=== PATIENT | male | born 1955 | race Caucasian/White ===

== ENCOUNTER 2016-12-03 22:04 | Emergency (ER) | payer SELFPAY ==
[~2016-12-03] VITALS: Ht 172.7 cm; Wt 98.6 kg
[~2016-12-03 22:04] MED LIST: ALPHA-LIPOIC A300 MG PO; AMLODIPINE BESY10 MG PO; AMLODIPINE BESYL5 MG PO; BORON PO; LISINOPRIL20 MG PO; SERTRALINE HCL100 MG PO; TADALAFIL5 MG PO; TRAZODONE HCL50 MG PO
[2016-12-03 22:48] LABS: EOSINOPHIL (%) 0.8 % (0-5); EOSINOPHIL COUNT 0.1 K/uL (0-0.3); HEMATOCRIT 44.1 % (38.0-50.0); IMMATURE GRANULOCYTE (%) 0.3 % (0.0-0.7); INSTRUMENT ABS NEUTROPHIL CT 7.3 K/uL; LYMPHOCYTE COUNT 0.9 K/uL (1.0-2.8); MCH 27.5 PG (29.0-34.0); MCHC 34.5 G/DL (30.0-36.0); MCV 79.9 FL (86-99); MEAN PLAT.VOLUME 9.7 uM^3 (9.0-12.4); MONOCYTE (%) 7.1 % (3-12); MONOCYTE COUNT 0.6 K/uL (0-0.8); NEUTROPHIL (%) 82.1 % (45-76); NEUTROPHIL COUNT 7.3 K/uL (1.8-6.4); PLATELET COUNT 287 K/uL (156-360); RBC DIS.WIDTH-CV 12.1 % (11.8-14.6); RBC DIS.WIDTH-SD 34.9 % (39-53); RED BLOOD COUNT 5.52 M/uL (4.00-5.50); WHITE BLOOD COUNT 8.9 K/uL (4.1-10.2)
[2016-12-03 22:56] LABS: D-DIMER ELISA < 150.00 ng/mLDDU (<230)
[2016-12-03 22:58] LABS: CHLORIDE 106 mEq/L (99-109); POTASSIUM 3.9 mEq/L (3.7-5.4); SODIUM 139 mEq/L (136-147)
[2016-12-03 23:00] LABS: GLUCOSE 114 mg/dL (70-99)
[2016-12-03 23:01] LABS: ANION GAP 10 MEQ/L (2-14)
[2016-12-03 23:04] LABS: GFR ESTIMATE (CALCULATED) > 59 mL/min/
[2016-12-03 23:05] LABS: UREA NITROGEN (BUN) 13 mg/dL (9-23)
[2016-12-03 23:09] LABS: TROP-I INTERPRETATION NEGATIVE; TROPONIN-I 0.22 ng/mL (0.0-0.30)
[2016-12-04 00:23] VITALS: BP 170/96
== END 2016-12-04 00:24 | disposition left against medical advice (07) ==
LOC: EME → EDBD 22:04 → EME 22:04
PROVIDERS: Emergency Medicine
DX: R00.2 Palpitations (principal); I10 Essential (primary) hypertension; Z53.20 Procedure and treatment not carried out because of patient's decision for unspecified reasons
CPT/HCPCS: 71020; 80048; 84439; 84443; 84481; 84484; 85025; 85379; 93005; 99281; 99284

== ENCOUNTER 2017-05-20 16:03 | Inpatient (IN) | payer OTHER ==
[~2017-05-20] VITALS: Ht 172.7 cm; Wt 95.0 kg
[2017-05-20 16:40] LABS: HEMATOCRIT 29.6 % (38.0-50.0); HEMOGLOBIN 9.8 G/DL (12.5-16.6); MCHC 33.1 G/DL (30.0-36.0); MCV 81.5 FL (86-99); PLATELET COUNT 251 K/uL (156-360); RBC DIS.WIDTH-CV 13.4 % (11.8-14.6); RBC DIS.WIDTH-SD 40.2 % (39-53); RED BLOOD COUNT 3.63 M/uL (4.00-5.50); WHITE BLOOD COUNT 5.8 K/uL (4.1-10.2)
[2017-05-20 16:47] LABS: CHLORIDE 110 mEq/L (99-109); POTASSIUM 3.8 mEq/L (3.7-5.4); SODIUM 143 mEq/L (136-147)
[2017-05-20 16:48] LABS: ALBUMIN 3.1 g/dL (3.2-4.8); MAGNESIUM 2.1 mg/dL (1.3-2.7)
[2017-05-20 16:50] LABS: GLUCOSE 159 mg/dL (70-99); TOTAL PROTEIN 4.6 g/dL (6.4-8.3)
[2017-05-20 16:52] LABS: TOTAL BILIRUBIN 0.4 mg/dL (0.0-1.0)
[2017-05-20 16:53] LABS: SERUM ETHYL ALCOHOL < 10 mg/dL
[2017-05-20 16:54] LABS: ALKALINE PHOSPHATASE 65 IU/L (3-129); CREATININE 2.2 mg/dL (0.6-1.3); GFR ESTIMATE (CALCULATED) 33 mL/min/ (58.99-99999)
[2017-05-20 16:55] LABS: AST (GOT) 91 IU/L (2-34)
[2017-05-20 16:56] LABS: UREA NITROGEN (BUN) 49 mg/dL (9-23)
[2017-05-20 16:57] LABS: SALICYLATE < 5.0 MG/DL (15-30)
[2017-05-20 16:58] LABS: ACETAMINOPHEN (TYLENOL) < 10 mcg/mL (10-30); ALT (GPT) 62 IU/L (3-49)
[2017-05-20 16:58] LABS: AMPHETAMINE NEGATIVE (500 ng/mL); BARBITURATES NEGATIVE (200 ng/mL); BENZODIAZEPINES PRESUMPTIVE POSITIVE (150 ng/mL); BUPRENORPHINE NEGATIVE (10 ng/mL); COCAINE NEGATIVE (150 ng/mL); METHADONE NEGATIVE (200 ng/mL); METHAMPHETAMINE NEGATIVE (500 ng/mL); OPIATES (MORPHINE) NEGATIVE (100 ng/mL); OXYCODONE NEGATIVE (100 ng/mL); PHENCYCLIDINE NEGATIVE (25 ng/mL); PROPOXYPHENE NEGATIVE (300 ng/mL); THC CANNABINOIDS NEGATIVE (50 ng/mL); TRICYCLIC ANTIDEPRESSANTS NEGATIVE (300 ng/mL)
[2017-05-20 17:00] LABS: TROP-I INTERPRETATION NEGATIVE; TROPONIN-I < 0.01 ng/mL (0.0-0.30)
[2017-05-20 17:28] LABS: BENZODIAZEPINES, URINE SCREEN POSITIVE (200 ng/mL)
[2017-05-20] MEDS ORDERED: LISINOPRIL20 MG PO (21:56)
[2017-05-20] MEDS ORDERED: LIPITOR10 MG PO (22:03)
[2017-05-20] MEDS ORDERED: DESYREL100 MG PO (22:04)
[2017-05-20] MEDS ORDERED: [UNRECOGNIZED DRUG - OTHER] PO (22:07)
[2017-05-20] MEDS ORDERED: PROSTATE HEALT1 EAC1 PO (22:08)
[2017-05-20] MEDS ORDERED: LAXATIVE DIETA500 MG PO (22:10)
[2017-05-20] MEDS ORDERED: CHONDROITIN SU250 MG PO (22:13)
[2017-05-20] MEDS ORDERED: OPTIFLEX-C400 MG PO (22:15)
[2017-05-20] MEDS ORDERED: K2 PLUS D3 TAB1 EACH PO (22:16)
[2017-05-20] MEDS ORDERED: TUMERIC PO (22:18)
[2017-05-20] MEDS ORDERED: BORON PO (22:20)
[2017-05-20] MEDS ORDERED: [UNRECOGNIZED DRUG - REMARK] (22:22)
[2017-05-20] MEDS ORDERED: BACLOFEN10 MG PO (23:06)
[2017-05-20] MEDS ORDERED: FLAX SEED OIL1 EACH PO (23:07)
[2017-05-20] MEDS ORDERED: COENZYME Q10100 M2 PO (23:09)
[2017-05-20] MEDS ORDERED: [UNRECOGNIZED DRUG - OTHER] PO (23:13)
[2017-05-20 23:23] LABS: HEMATOCRIT 32.5 % (38.0-50.0); HEMOGLOBIN 10.7 G/DL (12.5-16.6); MCV 81.5 FL (86-99)
[2017-05-20 23:36] LABS: CHLORIDE 114 mEq/L (99-109); POTASSIUM 3.9 mEq/L (3.7-5.4); SODIUM 144 mEq/L (136-147)
[2017-05-20 23:42] LABS: GFR ESTIMATE (CALCULATED) 44 mL/min/ (58.99-99999)
[2017-05-20 23:43] LABS: UREA NITROGEN (BUN) 42 mg/dL (9-23)
[2017-05-20 23:45] LABS: CREATININE 1.7 mg/dL (0.6-1.3); GLUCOSE 101 mg/dL (70-99)
[2017-05-21 00:04] LABS: URIC ACID 7.2 mg/dL (3.1-9.2)
[2017-05-21 00:19] VITALS: BP 193/87
[2017-05-21 01:14] LABS: APPEARANCE CLEAR ((CLEAR)); BILIRUBIN NEGATIVE; BLOOD NEGATIVE; COLOR YELLOW ((YELLOW)); GLUCOSE (STRIP) NEGATIVE; KETONES NEGATIVE; LEUKOCYTES NEGATIVE; NITRITE NEGATIVE; PROTEIN (STRIP) NEGATIVE; SPECIFIC GRAVITY 1.011 (1.000-1.030); UCUL ADDED? NO; UROBILINOGEN 0.2 MG/DL (0.2-1.0)
[2017-05-21 02:10] VITALS: BP 148/78
[2017-05-21 04:30] VITALS: BP 141/80
[2017-05-21 04:52] LABS: HEMATOCRIT 33.5 % (38.0-50.0); HEMOGLOBIN 11.1 G/DL (12.5-16.6); MCHC 33.1 G/DL (30.0-36.0); MCV 81.5 FL (86-99); PLATELET COUNT 291 K/uL (156-360); RBC DIS.WIDTH-CV 13.3 % (11.8-14.6); RBC DIS.WIDTH-SD 39.2 % (39-53); RED BLOOD COUNT 4.11 M/uL (4.00-5.50); WHITE BLOOD COUNT 6.4 K/uL (4.1-10.2)
[2017-05-21 05:02] LABS: ALBUMIN 3.5 g/dL (3.2-4.8); CHLORIDE 113 mEq/L (99-109); POTASSIUM 3.9 mEq/L (3.7-5.4); SODIUM 145 mEq/L (136-147)
[2017-05-21 05:04] LABS: GLUCOSE 86 mg/dL (70-99)
[2017-05-21 05:08] LABS: ALKALINE PHOSPHATASE 71 IU/L (3-129); CREATININE 1.5 mg/dL (0.6-1.3); GFR ESTIMATE (CALCULATED) 51 mL/min/ (58.99-99999)
[2017-05-21 05:09] LABS: UREA NITROGEN (BUN) 37 mg/dL (9-23)
[2017-05-21 05:10] LABS: AST (GOT) 84 IU/L (2-34); DIRECT BILIRUBIN 0.2 mg/dL (0.0-0.3)
[2017-05-21 05:11] LABS: ALT (GPT) 65 IU/L (3-49); CREATINE KINASE 1346 IU/L (1-294); TOTAL BILIRUBIN 0.5 mg/dL (0.0-1.0); TOTAL PROTEIN 5.7 g/dL (6.4-8.3)
[2017-05-21 09:30] VITALS: BP 141/82
== END 2017-05-21 11:49 | disposition left against medical advice (07) | DRG 918 ==
LOC: EME 16:03 → 3EAST 23:03 → EDOF 23:03 → CANRESERV 23:05 → ENRESERV 23:05 → CANRESERV 23:20 → ENRESERV 23:20 → 3EAST 05-21 00:07
PROVIDERS: Emergency Medicine; Hospitalist
DX: T42.8X1A Poisoning by antiparkinsonism drugs and other central muscle-tone depressants, accidental (unintentional), initial encounter (principal); N17.9 Acute kidney failure, unspecified; M62.82 Rhabdomyolysis; R94.5 Abnormal results of liver function studies; D64.9 Anemia, unspecified; E86.9 Volume depletion, unspecified; F10.21 Alcohol dependence, in remission; F32.9 Major depressive disorder, single episode, unspecified; I10 Essential (primary) hypertension; J45.909 Unspecified asthma, uncomplicated; M50.10 Cervical disc disorder with radiculopathy, unspecified cervical region; F41.9 Anxiety disorder, unspecified; G43.909 Migraine, unspecified, not intractable, without status migrainosus; E66.9 Obesity, unspecified; Z81.8 Family history of other mental and behavioral disorders; Z68.31 Body mass index [BMI] 31.0-31.9, adult
CPT/HCPCS: 70450; 71045; 80048; 80048 91; 80053; 80076; 81003; 82272; 82436; 82550; 82550 91; 83735; 83880; 83930; 83935; 84133; 84300; 84484; 84550; 84999; 85014; 85018; 85027; 93005; 99281; 99285; G0480; J7030; S0028

== ENCOUNTER 2017-06-02 12:25 | Emergency (ER) | payer OTHER ==
[~2017-06-02] VITALS: Ht 170.2 cm; Wt 95.9 kg
[~2017-06-02 12:25] MED LIST changes: +BACLOFEN10 MG PO; +CHONDROITIN SU250 MG PO; +COENZYME Q10100 M2 PO; +DESYREL100 MG PO; +FLAX SEED OIL1 EACH PO; +K2 PLUS D3 TAB1 EACH PO; +LAXATIVE DIETA500 MG PO; +LIPITOR10 MG PO; +OPTIFLEX-C400 MG PO; +PROSTATE HEALT1 EAC1 PO; +TUMERIC PO; +[UNRECOGNIZED DRUG - OTHER] PO; +[UNRECOGNIZED DRUG - OTHER] PO; +[UNRECOGNIZED DRUG - REMARK]
[2017-06-02 13:31] LABS: HEMATOCRIT 35.2 % (38.0-50.0); HEMOGLOBIN 11.7 G/DL (12.5-16.6); MCH 26.9 PG (29.0-34.0); MCHC 33.2 G/DL (30.0-36.0); MCV 80.9 FL (86-99); PLATELET COUNT 355 K/uL (156-360); RBC DIS.WIDTH-CV 13.4 % (11.8-14.6); RBC DIS.WIDTH-SD 39.2 % (39-53); RED BLOOD COUNT 4.35 M/uL (4.00-5.50); WHITE BLOOD COUNT 6.7 K/uL (4.1-10.2)
[2017-06-02 13:55] LABS: ALBUMIN 3.9 g/dL (3.2-4.8)
[2017-06-02 13:56] LABS: CHLORIDE 113 mEq/L (99-109); POTASSIUM 3.9 mEq/L (3.7-5.4); SODIUM 145 mEq/L (136-147)
[2017-06-02 13:58] LABS: GLUCOSE 105 mg/dL (70-99); TOTAL PROTEIN 6.1 g/dL (6.4-8.3)
[2017-06-02 14:00] LABS: TOTAL BILIRUBIN 0.7 mg/dL (0.0-1.0)
[2017-06-02 14:01] LABS: ALKALINE PHOSPHATASE 81 IU/L (3-129); SERUM ETHYL ALCOHOL < 10 mg/dL
[2017-06-02 14:02] LABS: CREATININE 1.1 mg/dL (0.6-1.3); GFR ESTIMATE (CALCULATED) > 59 mL/min/ (58.99-99999)
[2017-06-02 14:03] LABS: AST (GOT) 27 IU/L (2-34); UREA NITROGEN (BUN) 13 mg/dL (9-23)
[2017-06-02 14:05] LABS: ALT (GPT) 30 IU/L (3-49)
[2017-06-02 14:51] LABS: APPEARANCE SL.HAZY ((CLEAR)); BILIRUBIN NEGATIVE; BLOOD NEGATIVE; COLOR YELLOW ((YELLOW)); GLUCOSE (STRIP) NEGATIVE; KETONES NEGATIVE; LEUKOCYTES NEGATIVE; NITRITE NEGATIVE; PROTEIN (STRIP) 30; SPECIFIC GRAVITY 1.017 (1.000-1.030); UROBILINOGEN 0.2 MG/DL (0.2-1.0)
[2017-06-02 14:57] LABS: BACTERIA NONE SEEN /HPF; EPITHELIAL CELLS NONE SEEN /HPF; HYALINE CASTS 0-5 /LPF; MUCUS 1+ /LPF; RED BLOOD CELLS 0-5 /HPF (0-5); WHITE BLOOD CELLS 0-5 /HPF (0-5)
[2017-06-02 15:00] LABS: AMPHETAMINE NEGATIVE (500 ng/mL); BARBITURATES NEGATIVE (200 ng/mL); BENZODIAZEPINES PRESUMPTIVE POSITIVE (150 ng/mL); BUPRENORPHINE NEGATIVE (10 ng/mL); COCAINE NEGATIVE (150 ng/mL); METHADONE NEGATIVE (200 ng/mL); METHAMPHETAMINE NEGATIVE (500 ng/mL); OPIATES (MORPHINE) NEGATIVE (100 ng/mL); OXYCODONE NEGATIVE (100 ng/mL); PHENCYCLIDINE NEGATIVE (25 ng/mL); PROPOXYPHENE NEGATIVE (300 ng/mL); THC CANNABINOIDS NEGATIVE (50 ng/mL); TRICYCLIC ANTIDEPRESSANTS NEGATIVE (300 ng/mL)
[2017-06-02 15:29] VITALS: BP 138/79
[2017-06-02 15:32] LABS: BENZODIAZEPINES, URINE SCREEN POSITIVE (200 ng/mL)
== END 2017-06-02 15:29 | disposition home or self-care (01) ==
LOC: EME 12:25
PROVIDERS: Emergency Medicine
DX: F13.10 Sedative, hypnotic or anxiolytic abuse, uncomplicated (principal); I10 Essential (primary) hypertension; F32.9 Major depressive disorder, single episode, unspecified; F41.9 Anxiety disorder, unspecified
CPT/HCPCS: 70450; 80053; 81003; 84999; 85027; 99281; 99285; G0480; J7030